=== PATIENT | male | born 2000 | race African-American/Black ===

== ENCOUNTER 2022-04-09 16:47 | Emergency (ER) | payer OTHER ==
[~2022-04-09] VITALS: Ht 185.4 cm; Wt 68.2 kg
[2022-04-09 18:27] VITALS: BP 111/65
== END 2022-04-09 19:08 | disposition home or self-care (01) ==
LOC: EMS 16:50
DX: A05.9 Bacterial foodborne intoxication, unspecified (principal)
CPT/HCPCS: 99281; Z7502